=== PATIENT | female | born 1995 | race Caucasian/White ===

== ENCOUNTER 2020-01-11 14:29 | Outpatient (CLI) | payer BC, SELFPAY ==
[2020-01-11 14:40] LABS: Basophils Absolute Auto 0.06 K/mm3 (0.00-0.10); Basophils Percent Auto 0.9 % (0.0-1.0); Eosinophils Absolute Auto 0.38 K/mm3 (0.02-0.50); Eosinophils Percent Auto 5.6 % (1.0-6.0); Hemoglobin 12.2 g/dL (12.0-15.0); Immature Granulocyte Absolute 0.03 K/mm3 (0.00-0.00); Immature Granulocyte Percent A 0.4 % (0.0-0.0); Lymphocytes Absolute Auto 2.69 K/mm3 (1.10-4.50); Lymphocytes Percent Auto 39.4 % (18.0-42.0); Mean Corpuscular Hemoglobin 29.5 pg (27.0-31.0); Mean Corpuscular Volume 89.6 fL (78.0-102.0); Mean Platelet Volume 10.1 fl (9.2-11.8); Monocytes Absolute Auto 0.45 K/mm3 (0.10-0.90); Monocytes Percent Auto 6.6 % (2.0-11.0); Neutrophils Absolute Auto 3.2 K/mm3 (1.7-7.2); Neutrophils Percent Auto 47.1 % (50.0-70.0); Platelet Count Result 216 K/mm3 (150-420); Red Blood Count 4.13 M/mm3 (4.20-5.40); Red Cell Distribution Width 12.4 % (11.6-14.4); White Blood Count 6.8 K/mm3 (4.8-10.8)
[2020-01-11 15:43] LABS: Alanine Aminotransferase 60 U/L (14-59); Alkaline Phosphatase 51 U/L (46-116); Anion Gap 14.2 mmol/L (7-16); Aspartate Amino Transferase 33 U/L (15-37); Bilirubin,Total 0.5 mg/dL (0.00-1.00); Blood Urea Nitrogen 11 mg/dL (7-18); Calcium 8.3 mg/dL (8.5-10.1); Carbon Dioxide 27 mmol/L (21-32); Chloride 104 mmol/L (98-108); Estimated Glomerular Filt Rate > 60; Free T4 Free Thyroxine 0.86 ng/dL (0.76-1.46); Glucose 90 mg/dL (70-99); Osmolality Calculated 291 mOsm/kg (285-295); Potassium 4.2 mmol/L (3.5-5.1); Sodium 141 mmol/L (136-145); Thyroid Stimulating Hormone 2.31 uIU/mL (0.36-3.74); Total Protein 7.9 g/dL (6.4-8.2)
[2020-01-13 11:10] LABS: Total Triiodothyronine (T3) 121 ng/dL (76-181)
[2020-01-17 06:53] LABS: Vitamin D 1,25 (OH)2 Total 69 pg/mL (18-72); Vitamin D2 1,25 (OH)2 <8 pg/mL; Vitamin D3 1,25 (OH)2 69 pg/mL
== END 2020-01-11 14:30 | disposition home or self-care (01) ==
LOC: CHSLAB 14:32
PROVIDERS: PCP Nurse Practitioner Family; Visit Provider Nurse Practitioner Family
DX: E03.9 Hypothyroidism, unspecified (principal); F41.1 Generalized anxiety disorder; N92.6 Irregular menstruation, unspecified; Z30.9 Encounter for contraceptive management, unspecified
CPT/HCPCS: 36415; 80053; 82652; 84439; 84443; 84480; 85025

== ENCOUNTER 2020-02-20 08:29 | Outpatient (CLI) | payer BC, SELFPAY ==
--- NOTE | ~2020-02-20 | US_ITS ---
EXAMINATION: US right upper quadrant DATE: 02/20/2020 09:27 INDICATION: Right upper quadrant pain TECHNIQUE: Multiple grayscale and Doppler ultrasound images of the abdomen were obtained. COMPARISON: None available FINDINGS: The head and and body of the pancreas are normal. The pancreatic tail is obscured by bowel gas. The liver demonstrates increased echogenicity, heterogenous echotexture, and decreased through t ransmission. No surface nodularity. Normal hepatopetal flow in the main portal vein. The gallbladder is normal with no abnormal wall thickening, pericholecystic fluid or stones. The normal common bile d uct measures 2 mm. There was no sonographic Hayes sign. IMPRESSION: 1. Normal sonographic study of the gallbladder. 2. Diffuse hepatic steatosis. Reviewed, dictated and finalized at location A.
[2020-02-20 08:41] LABS: Basophils Absolute Auto 0.01 K/mm3 (0.00-0.10); Basophils Percent Auto 0.1 % (0.0-1.0); Eosinophils Absolute Auto 0.53 K/mm3 (0.02-0.50); Hematocrit 36.4 % (35.0-49.0); Hemoglobin 11.7 g/dL (12.0-15.0); Immature Granulocyte Absolute 0.03 K/mm3 (0.00-0.00); Immature Granulocyte Percent A 0.4 % (0.0-0.0); Lymphocytes Absolute Auto 3.26 K/mm3 (1.10-4.50); Lymphocytes Percent Auto 42.9 % (18.0-42.0); Mean Corpuscular HGB Conc 32.1 g/dL (32.0-36.0); Mean Corpuscular Hemoglobin 28.7 pg (27.0-31.0); Mean Corpuscular Volume 89.2 fL (78.0-102.0); Monocytes Absolute Auto 0.55 K/mm3 (0.10-0.90); Monocytes Percent Auto 7.2 % (2.0-11.0); Neutrophils Absolute Auto 3.2 K/mm3 (1.7-7.2); Neutrophils Percent Auto 42.4 % (50.0-70.0); Platelet Count Result 246 K/mm3 (150-420); Red Blood Count 4.08 M/mm3 (4.20-5.40); Red Cell Distribution Width 12.5 % (11.6-14.4); White Blood Count 7.6 K/mm3 (4.8-10.8)
[2020-02-20 10:21] LABS: Alanine Aminotransferase 25 U/L (14-59); Albumin Level 3.3 g/dL (3.4-5.0); Alkaline Phosphatase 40 U/L (46-116); Aspartate Amino Transferase 18 U/L (15-37); Bilirubin,Total 0.2 mg/dL (0.00-1.00); Blood Urea Nitrogen 9 mg/dL (7-18); Calcium 8.6 mg/dL (8.5-10.1); Carbon Dioxide 27 mmol/L (21-32); Chloride 107 mmol/L (98-108); Estimated Glomerular Filt Rate > 60; Glucose 99 mg/dL (70-99); Osmolality Calculated 292 mOsm/kg (285-295); Sodium 142 mmol/L (136-145)
== END 2020-02-20 08:30 | disposition home or self-care (01) ==
PROVIDERS: PCP Nurse Practitioner Family; Visit Provider Nurse Practitioner Family
DX: R10.11 Right upper quadrant pain (principal)
CPT/HCPCS: 36415; 76705; 80053; 85025

== ENCOUNTER 2021-06-24 11:03 | Outpatient (CLI) | payer BC, SELFPAY ==
[2021-06-24 11:16] LABS: Basophils Absolute Auto 0.04 K/mm3 (0.00-0.10); Basophils Percent Auto 0.5 % (0.0-1.0); Eosinophils Absolute Auto 0.37 K/mm3 (0.02-0.50); Eosinophils Percent Auto 5.1 % (1.0-6.0); Hematocrit 40.8 % (35.0-49.0); Hemoglobin 13.1 g/dL (12.0-15.0); Immature Granulocyte Absolute 0.03 K/mm3 (0.00-0.00); Immature Granulocyte Percent A 0.4 % (0.0-0.0); Lymphocytes Absolute Auto 2.53 K/mm3 (1.10-4.50); Lymphocytes Percent Auto 34.8 % (18.0-42.0); Mean Corpuscular HGB Conc 32.1 g/dL (32.0-36.0); Mean Corpuscular Hemoglobin 28.7 pg (27.0-31.0); Mean Corpuscular Volume 89.5 fL (78.0-102.0); Mean Platelet Volume 9.6 fl (9.2-11.8); Monocytes Absolute Auto 0.44 K/mm3 (0.10-0.90); Neutrophils Absolute Auto 3.9 K/mm3 (1.7-7.2); Neutrophils Percent Auto 53.2 % (50.0-70.0); Platelet Count Result 271 K/mm3 (150-420); Red Blood Count 4.56 M/mm3 (4.20-5.40); Red Cell Distribution Width 12.8 % (11.6-14.4); White Blood Count 7.3 K/mm3 (4.8-10.8)
[2021-06-24 12:16] LABS: Alanine Aminotransferase 26 U/L (14-59); Albumin Level 3.4 g/dL (3.4-5.0); Alkaline Phosphatase 44 U/L (46-116); Anion Gap 14 mmol/L (8-16); Aspartate Amino Transferase 16 U/L (15-37); Bilirubin,Total 0.3 mg/dL (0.00-1.00); Blood Urea Nitrogen 12 mg/dL (7-18); Calcium 9.2 mg/dL (8.5-10.1); Carbon Dioxide 25 mmol/L (21-32); Chloride 103 mmol/L (98-108); Estimated Glomerular Filt Rate > 60; Free T4 Free Thyroxine 1.06 ng/dL (0.76-1.46); Glucose 102 mg/dL (70-99); Osmolality Calculated 293 mOsm/kg (285-295); Potassium 4.4 mmol/L (3.5-5.1); Sodium 142 mmol/L (136-145); Total Protein 7.7 g/dL (6.4-8.2); Vitamin B12 1244 pg/mL (193-986)
[2021-06-26 12:04] LABS: Vitamin D 25 Hydroxy 31 ng/mL (30-100)
== END 2021-06-24 11:04 | disposition home or self-care (01) ==
LOC: CHSLAB 11:07
PROVIDERS: PCP Nurse Practitioner Family; Visit Provider Nurse Practitioner Family
DX: E03.9 Hypothyroidism, unspecified (principal); I10 Essential (primary) hypertension; E53.8 Deficiency of other specified B group vitamins; Z79.899 Other long term (current) drug therapy
CPT/HCPCS: 36415; 80053; 82306; 82607; 84439; 84443; 85025

== ENCOUNTER 2022-04-23 14:23 | Outpatient (NON) | payer BC, MEDICAID, SELFPAY ==
[2022-04-23 14:38] LABS: Add Urine Microscopic? YES; Appearance Urine Slightly Cloudy (Clear); Bilirubin Urine Negative (Negative); Blood Urine 2+ (Negative); Color Urine Yellow (Yellow); Glucose Urine UA Trace (Negative); Ketones Urine Negative (Negative); Leukocyte Esterase Ur Negative LEU/UL (Negative); Nitrate Urine Negative (Negative); Protein Urine Negative (Negative); Specific Grav Ur 1.025 (1.010-1.020); Urobilinogen Urine 0.2 mg/dL (0.2-1.0)
[2022-04-23 14:53] LABS: WBC Urine 0-3 /hpf (0-3)
[2022-04-23 14:54] LABS: Bacteria Urine 1+ /hpf; Squamous Epithelial Cell Urine Many /hpf (Few)
== END 2022-04-23 14:24 | disposition home or self-care (01) ==
LOC: CHSLAB 14:27
PROVIDERS: Visit Provider Nurse Practitioner Family
DX: R39.9 Unspecified symptoms and signs involving the genitourinary system (principal)
CPT/HCPCS: 81001

== ENCOUNTER 2025-06-17 19:46 | Emergency (ER) | payer BC, SELFPAY ==
--- OUTSIDE RECORDS SUMMARY | 2025-06-17 19:49 | XMS_ITS | Clinical Summary ---
Author Organization [facility] Address [address] [place] [address] Care Team Providers Care Clamper Name Role Phone Tuan Wong MD Primary Care Provider [phone] Source Comments [facility],non-owned Affiliates and Associated Physician Practices is amultiple site organization consisting of ambulatory clinics and hospital sitesin [place], [place], [place] and [place]. This disclosure is being madepursuant to the Care Everywhere program and may not contain all information available regarding this patient. Last updated 18.[facility] Allergies Active Allergy Reactions Criticality Noted Date Comments Amoxicillin Rash Low 11/10/2010 Medications * Be aware that medications may not be up to date on this document. Alwaysverify current medications with the patient. ciprofloxacin- dexamethasone (CIPRODEX) 0.3-0.1 % otic suspension 4 Drops 2 times daily. Shake well before using. 1 Bottle 1 0 Active acetaminophen (TYLENOL) 325 MG tablet Take 1,000 mg by mouth every 4 hours as needed. Maximum allowable Acetaminophen amount = 4 Grams (4000 mg) / 24 hours. Active Active Problems Problem Noted Date Diagnosed Date Injury of ankle, right 04/01/2011 Family History Medical History Relation Name Comments Anesthesia Reaction Neg Hx Bleeding Disorders Neg Hx Childhood Hearing Disorder Neg Hx Social History Tobacco Use Types Packs/Day Years Used Date Smoking Tobacco: Never Assessed Comments No Sex and Gender Information Value Date Recorded Sex Assigned at Not on file Legal Sex Female 5:41 AM SERVICE ORDER CLERK Gender Identity Not on file Sexual Orientation Not on file Last Filed Vital Signs Vital Sign Reading Time Taken Comments Blood Pressure 140/98 04/01/2011 4:30 PM CDT Pulse 91 04/01/2011 4:30 PM CDT Temperature 36.6 C (97.9 F) 04/01/2011 4:30 PM CDT Respiratory Rate 16 04/01/2011 4:30 PM CDT Oxygen Saturation - - Inhaled Oxygen Concentration - - Weight 142.9 kg (315 lb) 04/01/2011 4:30 PM CDT Height 178 cm (5' 10.08) 12/31/2010 1:14 PM SERVICE ORDER CLERK Body Mass Index - - Plan of Treatment Health Maintenance Due Date Last Done Comments HIV SCREENING 2009 HEPATITIS C SCREENING 07/30/2012 DTAP/TDAP/TD VACCINES (1 - Tdap) 2013 HEPATITIS B VACCINE (1 of 3 - 19+ 3-dose series) 2013 HPV VACCINE (1 - 3-dose SCDM series) 2021 COVID-19 VACCINE (1 - 2023-2 5 season) 2024 DEPRESSION SCREENING 11/22/2024 INFLUENZA VACCINE (#1) 2025 ZOSTER VACCINE (1 of 2) 2044 HIB VACCINE Aged Out No longer eligi ble based on patient's age to complete this topic MENINGOCOCCAL (Group B) VACC INE SHARED DECISION-MAKING Aged Out No longer eligibl e based on patient's age to complete this topic MENINGOCOCCAL GROUPS A/C/Y/W VACCINE Aged Out No longer eligible b ased on patient's age to complete this topic PNEUMOCOCCAL VACCINE Aged Out No long er eligible based on patient's age to complete this topic Care Teams Clamper Relationship Specialty Start Date End Date Tuan Wong MD [address] [place] [id number] PCP - General 11/10/10
--- OUTSIDE RECORDS SUMMARY | 2025-06-17 19:49 | XMS_ITS | Clinical Summary ---
Author Organization [facility] Address [address] [place] [id number] Care Team Providers Care Technical Account Executive Name Role Phone Azalea Guadarrama Primary Care Provider [phone] Social History Tobacco Use Types Packs/Day Years Used Date Smoking Tobacco: Never Assessed Comments Unknown Sex and Gender Information Value Date Recorded Sex Assigned at Not on file Legal Sex Female 8:10 PM CDT Gender Identity Not on file Sexual Orientation Not on file Last Filed Vital Signs Vital Sign Reading Time Taken Comments Blood Pressure 131/89 05/02/2015 11:05 PM CDT Pulse - - Temperature - - Respiratory Rate - - Oxygen Saturation - - Inhaled Oxygen Concentration - - Weight 145.2 kg (320 lb) 05/02/2015 11:05 PM CDT Height 180.3 cm (5' 11) 05/02/2015 11:05 PM CDT Body Mass Index 44.63 05/02/2015 11:05 PM CDT Plan of Treatment Health Maintenance Due Date Last Done Comments Cervical Cancer Screening Pa p Smear (Age 30 to 64) Every 3 Years 1994 Annual Physical 1997 Hepatitis C 2012 DTaP, Tdap and Td Vaccines ( 1 - Tdap) 2013 Hepatitis B Vaccines (1 of 3 - 19+ 3-dose series) 2013 HPV Vaccines (1 - 3-dose SCD M series) 2021 COVID-19 Vaccine (2023-2 5 season) 2024 07/30/2021, 07/09/2021 Cervical Cancer Screening Pa p with HPV Testing (Age 30 to 64) Every 5 Years 2024 Cervical Cancer Screening wi th HPV 2024 Meningococcal B Vaccine Aged Out No l onger eligible based on patient's age to complete this topic Meningococcal Vaccine Aged Out No mina louann eligible based on patient's age to complete this topic Pneumococcal Vaccine: Pediatrics (0 to 5 Years) and At-Risk Patients (6 to 49 Years) Aged Out No longer eligible b ased on patient's age to complete this topic RSV Immunizations Under 20 Months Aged Out No longer eligible b ased on patient's age to complete this topic [place] [address] [place] [address] Care Teams Technical Account Executive Relationship Specialty Start Date End Date Azalea Guadarrama PA [address] [address] PCP - General PHYSICIAN TONAL REGULATOR 01/28/24
[2025-06-17 19:50] VITALS: BP 145/75; PULSE 110; RESP 18; TEMP 36.4; O2SAT 98
--- NOTE | 2025-06-17 19:52 | ED_ITS ---
HPI - Extremity Injury (Upper) General Chief Complaint: Extremity Injury, Upper Stated Complaint: L arm Pain Time Seen by Provider: 06/17/25 19:48 Source: patient and family Mode of arrival: ambulatory Limitations: no limitations History of Present Illness HPI narrative: Patient is a 29-year-old female with left shoulder and left upper extremity pain since this morning. She woke with the symptoms. She also has a left eye irritation and pain. She woke with this symptom as well. The eye is getting better throughout the day. No particular neck pain. No injury. Onset (ago): day(s) ( One) Other injuries: none Place: home Severity: mild Severity scale (1-10): 3 Relieving factors: none Exacerbating factors: none Context: other ( no injury) Associated symptoms: other ( left eye irritation) Treatments prior to arrival: other ( none) Related Data Home Medications ?Medication ?Instructions ?Recorded ?Confirmed ?Last Taken ?Type prazosin 1 mg capsule 1 mg PO QPM 05/08/20 06/20/21 Unknown History aripiprazole 2 mg tablet 2 mg PO DAILY 06/20/21 06/20/21 Unknown History Allergies Allergy/AdvReac Type Severity Reaction Status Date / Time amoxicillin Allergy Intermediate Unknown Verified 06/17/25 20:05 bupropion (Wellbutrin SR) Allergy Intermediate Unknown Verified 06/17/25 20:05 Review of Systems Review of Systems: All systems reviewed & are unremarkable except as noted in HPI and below Constitutional: Constitutional: Reports no additional constitutional complaints Eyes: Eyes: Reports no additional eye complaints ENT: Reports system reviewed and no additional complaints, except as documented Cardiovascular: Cardiovascular: Reports no additional cardiovascular complaints Respiratory: Respiratory: Reports no additional respiratory complaints Gastrointestinal: Gastrointestinal: Reports no additional gastrointestinal complaints Genitourinary: Genitourinary: Reports no additional female genitourinary complaints Musculoskeletal: Musculoskeletal: Reports no additional musculoskeletal complaints Integumentary/Breasts: Skin/Breast: Reports system reviewed and no additional complaints, except as docu Neurologic: Reports system reviewed and no additional complaints, except as documented Psychiatric: Psychiatric: Reports no additional psychiatric complaints Endocrine: Endocrine: Reports no additional endocrine complaints Hematologic/Lymphatic: Hematologic/Lymphatic: Reports no additional hematologic/lymphatic complaints Allergic/Immunologic: Allergic/Immunologic: Reports no additional allergic/immunologic complaints [facility] Past Medical History Medical History (Updated 06/17/25 @ 20:25 by Matt Mills MD) Hypothyroidism Depression YASEMIN (generalized anxiety disorder) Chronic headaches GERD (gastroesophageal reflux disease) HTN (hypertension) Surgical History Surgical History Hx of appendectomy 2005 Family History Family History Father Hypertension Mother Diabetes mellitus Hypertension Social History Social History Smoking status: Never smoker Tobacco type: cigarettes Alcohol intake: never Substance use: never Substance use type: does not use Living arrangements: with family Exam Const: General: healthy appearing Nutritional Appearance: well nourished Orientation/consciousness: patient oriented x3 HENMT: Head: normal to inspection Ears: external ears normal Face/Nose/Sinus: Normal external nose present Eyes: Conjunctivae: conjunctivae normal Pupils: Equal, round and reactive pupils present EOM: EOMs intact bilaterally Direct Ophthalmoscopy: no photophobia Other: left eye is normal in appearance without conjunctival changes and normal pupillary response; no signs of infection Neck: Neck: normal visual inspection Chest: Chest palpation & inspection: normal inspection of the chest Resp: Effort & Inspection: normal respiratory effort and not labored Auscultation: clear to auscultation bilaterally and no crackles Cardio: Rate: regular rate Rhythm: regular rhythm Heart sounds: no murmurs GI: Inspection: non-distended GI Palp: Yes Soft to palpation and No Tenderness to palpation present (GI) Auscultation: normal bowel sounds Back/Spine/Pelvis: Back: no CVA tenderness Skin: General skin exam: normal color Rashes: no rashes Wounds: no wounds Neuro: General: patient oriented x3, moves all extremities and no meningeal signs Extrem: General: normal to inspection Other: tender left shoulder at the bursa to palpation and deep palpation; shooting sensation upon palpation of the left shoulder but not the left neck (peripheral type neuropathy); the neck itself had a completely negative exam Psych: Mental Status: mental status grossly normal Affect: normal affect Attitude: cooperative Course Vital Signs Vital signs: Vital Signs Temperature 36.4 C L 06/17/25 19:50 Pulse Rate 110 H 06/17/25 19:50 Respiratory Rate 18 06/17/25 19:50 Blood Pressure 145/75 H 06/17/25 19:50 Pulse Oximetry 98 06/17/25 19:50 Oxygen Delivery Room Air 06/17/25 19:50 Temperature 36.4 C L 06/17/25 19:50 Pulse Rate 110 H 06/17/25 19:50 Respiratory Rate 18 06/17/25 19:50 Blood Pressure 145/75 H 06/17/25 19:50 Pulse Oximetry 98 06/17/25 19:50 Oxygen Delivery Room Air 06/17/25 19:50 MDM - Extremity Injury (Upper) MDM Narrative Medical decision making narrative: patient is a 29-year-old female with a left shoulder pain and and shooting pain down the left upper extremity as well as a irritation of the left eye. We will do Norflex and prednisone for the shoulder and arm pain. Watchful waiting to see if this turns into a conjunctivitis but at this time there is no sign of conjunctivitis or infection. Discharge Plan Discharge Clinical Impression: Acute left eye pain Acute shoulder bursitis Qualifiers: Laterality: left Qualified Code(s): M75.52 - Bursitis of left shoulder Peripheral neuropathy Qualifiers: Peripheral neuropathy type: idiopathic neuropathy, unspecified Qualified Code(s): G60.9 - Hereditary and idiopathic neuropathy, unspecified Patient Disposition: Home Condition: Stable Instructions: Shoulder Bursitis (ED), Peripheral Neuropathy (ED) Patient Language: Congolese Prescriptions: New tramadol 50 mg tablet 50 mg PO Q8H PRN (Reason: pain) Qty: 20 0RF Rx Instructions: 1-2 tabs per dose methylprednisolone [Medrol (Alec)] 4 mg tablets,dose pack See Rx Instructions .ROUTE .COMPLEX Qty: 21 0RF Rx Instructions: orally per package directions No Action prazosin 1 mg capsule 1 mg PO QPM aripiprazole 2 mg tablet 2 mg PO DAILY triamcinolone acetonide 0.1 % cream 1 applic topical TID Qty: 30 1RF azelastine 137 mcg (0.1 %) aerosol,spray 2 spray intranasal Q12H Qty: 30 0RF Rx Instructions: administer into each nostril trazodone 100 mg tablet 100 mg PO .Bedtime Qty: 30 0RF venlafaxine 150 mg capsule,extended release 24hr 150 mg PO DAILY Qty: 30 0RF fluticasone propionate 50 mcg/actuation spray,suspension See Rx Instructions .ROUTE .COMPLEX Qty: 16 0RF Dose Instruction: USE ONE SPRAY IN EACH NOSTRIL DAILY Rx Instructions: USE ONE SPRAY IN EACH NOSTRIL DAILY montelukast 10 mg tablet See Rx Instructions .ROUTE .COMPLEX Qty: 30 0RF Dose Instruction: TAKE ONE TABLET BY MOUTH DAILY Rx Instructions: TAKE ONE TABLET BY MOUTH DAILY pantoprazole 40 mg tablet,delayed release (DR/EC) See Rx Instructions .ROUTE .COMPLEX Qty: 30 0RF Dose Instruction: TAKE ONE TABLET BY MOUTH DAILY Rx Instructions: TAKE ONE TABLET BY MOUTH DAILY levothyroxine 50 mcg tablet See Rx Instructions .ROUTE .COMPLEX Qty: 30 0RF Dose Instruction: TAKE ONE TABLET BY MOUTH DAILY Rx Instructions: TAKE ONE TABLET BY MOUTH DAILY norgestimate-ethinyl estradiol [[id number]] 0.18/0.215/0.25 mg-25 mcg tablet See Rx Instructions .ROUTE .COMPLEX Qty: 84 0RF Dose Instruction: TAKE ONE TABLET BY MOUTH DAILY Rx Instructions: TAKE ONE TABLET BY MOUTH DAILY Follow-up/Referrals: Thierry,ARTIE Tristan [Primary Care Provider] - Time of Disposition: 21:10
[2025-06-17] MEDS: ORPHENADRINE CITRATE 30 MG/ML 2 ML VIAL 60 MG IM (20:24)
--- OUTSIDE RECORDS SUMMARY | 2025-06-17 20:24 | XMS_ITS | Clinical Summary ---
Author Organization [facility] Address [address] [place] [id number] Care Team Providers Care Banquet Set Up Person Name Role Phone Azalea Guadarrama Primary Care Provider [phone] Social History Tobacco Use Types Packs/Day Years [...] patient's age to complete this topic [place] [address] [place] [address] Care Teams Banquet Set Up Person Relationship Specialty Start Date End Date Azalea Guadarrama PA [address] [address] PCP - General PHYSICIAN APPLICATION PENETRATION TESTER 01/28/24
--- OUTSIDE RECORDS SUMMARY | 2025-06-17 20:24 | XMS_ITS | Clinical Summary ---
Author Organization [facility] Address [address] [place] [address] Care Team Providers Care In Store Demonstrator Name Role Phone Tuan Wong MD Primary Care Provider [phone] [facility],non-owned Affiliates and Associated Physician Practices is amultiple site organization consisting of ambulatory clinics and hospital sitesin [place], [place], [place] and [place]. This disclosure is being madepursuant to the Care Everywhere program and may not contain all information available regarding this patient. Last updated 18.[facility] Allergies Active Allergy Reactions Criticality Noted Date [...] on file Legal Sex Female 5:41 AM MANAGEMENT COORDINATOR Gender Identity Not on file Sexual Orientation [...] 178 cm (5' 10.08) 12/31/2010 1:14 PM MANAGEMENT COORDINATOR Body Mass Index - - Plan of [...] age to complete this topic Care Teams In Store Demonstrator Relationship Specialty Start Date End Date Tuan Wong MD [address] [place] [id number] PCP - General 11/10/10
[2025-06-17 21:20] VITALS: BP 129/88; PULSE 78; RESP 16; TEMP 36.7; O2SAT 97
== END 2025-06-17 21:20 | disposition home or self-care (01) ==
PROVIDERS: Emergency Provider Emergency Medicine; PCP Physician Assistant
DX: M75.52 Bursitis of left shoulder (principal); H57.12 Ocular pain, left eye; G60.9 Hereditary and idiopathic neuropathy, unspecified; E03.9 Hypothyroidism, unspecified; I10 Essential (primary) hypertension
CPT/HCPCS: 96372; 99283; J2360; J7512